=== PATIENT | female | born 1995 | race Hispanic/Latino ===

== ENCOUNTER 2017-03-29 01:21 | Emergency (ER) | payer BC ==
[2017-03-29 01:41] VITALS: BP 120/88; PULSE 80; RESP 16; TEMP 97.8; O2SAT 99
--- NOTE | 2017-03-29 01:52 | ED PDOC ---
Arrival/HPI - General Chief Complaint: Abnormal Skin Integrity Time Seen by Provider: 03/29/17 01:46 Historian: Patient, Other (friend) - History of Present Illness Narrative History of Present Illness (Text): 03/29/17 01:49 Elizabeth Collins is a 21 year old female who presents to the Emergency department accompanied by friend complaining of chin laceration status post mechanical fall tonight. Friend state patient tripped on a cellar door while walking outside and hit her chin. Patient sustained a small laceration to the chin and reports some minimal jaw discomfort when opening/closing her jaw. Patient denies any loss of consciousness, headache, dizziness, vision changes, neck pain, back pain, other trauma/injury, or any other complaints. Time/Duration: Other (tonight) Symptom Onset: Gradual Symptom Course: Unchanged Activities at Onset: Light Context: Walking, Street Past Medical History - Provider Review Nursing Documentation Reviewed: Yes - Cardiac Hx Cardiac Disorders: Yes - Psychiatric Hx Substance Use: No - Surgical History Hx Appendectomy: Yes Family/Social History - Physician Review Nursing Documentation Reviewed: Yes Family/Social History: Unknown Family HX Smoking Status: Never Smoked Hx Alcohol Use: Yes Frequency of alcohol use: Socially Hx Substance Use: No Allergies/Home Meds Allergies/Adverse Reactions: Allergies No Known Allergies Allergy (Verified 03/29/17 01:40) Home Medications: Home Meds Medication Instructions Recorded Confirmed No Known Home Med 03/29/17 03/29/17 Review of Systems - Physician Review All systems were reviewed & negative as marked: Yes - Review of Systems Constitutional: Normal. absent: Fevers Eyes: Normal ENT: Normal Respiratory: Normal. absent: SOB, Cough Cardiovascular: Normal. absent: Chest Pain, Syncope Gastrointestinal: Normal. absent: Abdominal Pain, Diarrhea, Nausea, Vomiting Genitourinary Female: Normal. absent: Dysuria, Frequency, Hematuria, Urine Output Changes Musculoskeletal: Other (+jaw discomfort). absent: Back Pain, Neck Pain Skin: Laceration (+laceation to chin). absent: Rash Neurological: Normal. absent: Headache, Dizziness Endocrine: Normal Hemo/Lymphatic: Normal Psychiatric: Normal Physical Exam Vital Signs Reviewed: Yes Vital Signs Temp Pulse Resp BP Pulse Ox 03/29/17 01:40 97.8 F 80 16 120/88 99 Temperature: Afebrile Blood Pressure: Normal Pulse: Regular Respiratory Rate: Normal Appearance: Positive for: Well-Appearing, Non-Toxic, Comfortable Pain Distress: None Mental Status: Positive for: Alert and Oriented X 3 - Systems Exam Head: Present: Normocephalic, Laceration (5mm superficial laceration to chin) Pupils: Present: PERRL Extroacular Muscles: Present: EOMI Conjunctiva: Present: Normal Mouth: Present: Moist Mucous Membranes Neck: Present: Normal Range of Motion Respiratory/Chest: Present: Clear to Auscultation, Good Air Exchange. No: Respiratory Distress, Accessory Muscle Use Cardiovascular: Present: Regular Rate and Rhythm, Normal S1, S2. No: Murmurs Abdomen: Present: Normal Bowel Sounds. No: Tenderness, Distention, Peritoneal Signs Upper Extremity: Present: Normal Inspection. No: Cyanosis, Edema Lower Extremity: Present: Normal Inspection. No: Edema Neurological: Present: GCS=15, CN II-XII Intact, Speech Normal Skin: Present: Warm, Dry, Normal Color. No: Rashes Psychiatric: Present: Alert, Oriented x 3, Normal Insight, Normal Concentration Medical Decision Making ED Course and Treatment: 03/29/17 01:50 Impression: 21 year old female complaining of laceration to chin tonight. Differential Diagnosis included but are not limited to: laceration Plan: -- XR Mandible -- Laceration repair -- Reassess and disposition Progress Notes: 03/29/17 02:35 Reviewed radiology, XR Mandible shows no acute processes/fracture. PROCEDURE: LACERATION REPAIR Performed by the emergency provider Location: Chin Length: 5 mm Description: clean wound edges, no foreign bodies Distal CMS: Normal. No deficits. Neurovascularly intact. Preparation: The wound was cleaned with NS and Betadyne. The area was prepped and draped in the usual sterile fashion. Exploration: The wound was explored and no foreign bodies were found. Procedure: The wound was closed with Dermabond. There was good approximation. Post-Procedure: Good closure and hemostasis. The patient tolerated the procedure well and there were no complications. CSM remains intact. Post procedure dressing applied. 03/29/17 02:54 On reevaluation the patient feels better and is in no acute distress. I have discussed the results and plan with the patient, who expresses understanding. Patient given the opportunity to ask question, all questions were answered and there is agreement with the plan to discharge the patient home. Patient is stable for discharge. Patient was instructed to follow up with physician/clinic in 1-2 days or return if symptoms persist/worsen or new concerning symptoms arise. - RAD Interpretation Radiology Orders: 03/29/17 01:50 MANDIBLE > 4 VIEWS [RAD] Stat - Scribe Statement The provider has reviewed the documentation as recorded by the Scribe Lakeshia Self Provider Scribe Attestation: All medical record entries made by the Scribe were at my direction and personally dictated by me. I have reviewed the chart and agree that the record accurately reflects my personal performance of the history, physical exam, medical decision making, and the department course for this patient. I have also personally directed, reviewed, and agree with the discharge instructions and disposition. Disposition/Present on Arrival - Present on Arrival Any Indicators Present on Arrival: No History of DVT/PE: No History of Uncontrolled Diabetes: No Urinary Catheter: No History of Decub. Ulcer: No History Surgical Site Infection Following: None - Disposition Have Diagnosis and Disposition been Completed?: Yes Diagnosis: Laceration of chin Disposition: HOME/ ROUTINE Disposition Time: 02:54 Condition: GOOD Discharge Instructions (ExitCare): Laceration (ED), Skin Adhesive Care (ED) Forms: [facility] (Welsh)
--- NOTE | 2017-03-29 10:15 | RAD ---
PROCEDURE: Mandible dated 03/29/2017. HISTORY: Status post fall COMPARISON: No prior study available comparison TECHNIQUE: Four views of the mandible performed FINDINGS: Current study reveals no obvious acute displaced fracture nor dislocation. The osseous structures appear intact so far as can be seen. Note however that the subtle mandibular fractures may not be visualized the on plain film imaging and if there is any concern, recommend followup CT scan of the mandible. IMPRESSION: No evidence of acute displaced fracture nor dislocation seen on not images presented however the possibility of a mandibular fracture cannot be completely excluded and if there is any concern, recommend followup CT scan. Note that this report was placed in PA review folder for followup. Rule out
== END 2017-03-29 02:58 | disposition home or self-care (01) ==
LOC: ED 01:21
DX: S01.81XA Laceration without foreign body of other part of head, initial encounter (principal); W01.0XXA Fall on same level from slipping, tripping and stumbling without subsequent striking against object, initial encounter; Y93.01 Activity, walking, marching and hiking; Y92.410 Unspecified street and highway as the place of occurrence of the external cause